=== PATIENT | female | born 1945 | race Two or more races ===

== ENCOUNTER 2024-02-05 12:30 | Emergency (ER) | payer OTHER ==
[~2024-02-05] VITALS: Ht 157.5 cm; Wt 68.0 kg
[~2024-02-05 12:30] MED LIST: NORFLEX100MG PO
[2024-02-05] MEDS ORDERED: ZESTRIL40 M1 (13:02)
[2024-02-05] MEDS ORDERED: SYNTHROID75 MCG PO (13:03)
[2024-02-05] MEDS ORDERED: hydrOXYzine PAMOATE 50 MG CAPSULE PO STA (15:45)
[2024-02-05] MEDS ORDERED: FAMOTIDINE/PF 20 MG/2 ML VIAL IV STA (15:46)
== END 2024-02-05 16:22 | disposition home or self-care (01) ==
LOC: ER 12:32
DX: F41.8 Other specified anxiety disorders (principal); E03.8 Other specified hypothyroidism; I10 Essential (primary) hypertension
CPT/HCPCS: 96365; 99282; J3490

== ENCOUNTER → 2024-09-14 | Emergency (ER) | payer OTHER ==
[~2024-09-14] VITALS: Ht 157.5 cm; Wt 56.7 kg
[~2024-09-14] MED LIST changes: +0.9 % SODIUM CHLORIDE 1,000 ML IV SCH; +MULTIVIT INFUSN,ADULT 4,VIT K 10 ML VIAL IV ONE; +SYNTHROID75 MCG PO; +ZESTRIL40 M1
[2024-09-14 09:07] VITALS: BP 133/86; O2SAT 96
[2024-09-14 10:11] LABS: BASO % 0.6 % (0.1-1.2); HEMOGLOBIN 12.9 g/dL (11.2-15.7); LYMPH # 1.48 (1.18-3.74); LYMPH % 30.3 % (19.3-53.1); MEAN CORPUSCULAR HEMOGLOBIN 26.6 pg (25.6-32.2); MONO # 0.17 (0.24-0.82); MONO % 3.5 % (4.7-12.5); NEUT # 3.17 (1.56-6.13); PLATELET COUNT 241 K/uL (163-369); RED BLOOD COUNT 4.85 M/uL (3.93-5.22); RED CELL DISTRIBUTION WIDTH 16.3 % (11.6-14.4)
[2024-09-14 11:20] LABS: CALCIUM 9.3 mg/dL (8.5-10.1); CREATININE SERUM 0.94 mg/dL (0.55-1.02); GFR 57.74; POTASSIUM 4.46 mEq/L (3.5-5.1)
== END | disposition home or self-care (01) ==
LOC: ER 08:39
PROVIDERS: Emergency Medicine
DX: R55 Syncope and collapse (principal); E03.8 Other specified hypothyroidism; Z88.0 Allergy status to penicillin; I10 Essential (primary) hypertension; G30.8 Other Alzheimer's disease; F02.80 Dementia in other diseases classified elsewhere, unspecified severity, without behavioral disturbance, psychotic disturbance, mood disturbance, and anxiety; E86.0 Dehydration